=== PATIENT | male | born 1995 | race Caucasian/White ===

== ENCOUNTER 2017-11-03 14:35 | Emergency (ER) | payer MEDICAID, OTHER ==
[~2017-11-03] VITALS: Ht 182.9 cm; Wt 95.3 kg
[~2017-11-03 14:35] MED LIST: BETA50CR5 TP; CYCL10TA9 PO; ELIMITE; METH4TAB PO; NAPR-689 PO; NAPR-915 PO; PRD20T PO
--- OUTSIDE RECORDS SUMMARY | 2017-11-03 14:41 | XMS REPORT ---
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 Active Assessment Bronchitis J40 Active Problem Contact dermatitis 692.9 Active Assessment Cellulitis L03.90 Active Medications Medication Code System Code Instructions Start Date End Date Status Dosage PredniSONE [facility] [address]-33 20 MG Orally Once a day Mar 03, 2015 2 qd 5 d, 1 qd until gone Doxycycline Hyclate [facility] [address]-55 100 MG Orally Twice a day Mar 31, 2015 Apr 07, 2015 1 capsule Procedures Procedure Coding System Code Date Office Visit, Est Pt., Level 3 CPT-4 10925 Mar 31, 2015 Vital Signs Date/Time: Mar 31, 2015 Temperature 99.3 F Weight 204 lbs Height 71.0 in BMI 28.45 Index Blood Pressure Diastolic 92 mmHg Blood Pressure Systolic 130 mmHg Cardiac Monitoring Heart Rate 84 bpm Results No Known Results Summary Purpose eClinicalWorks Submission
--- OUTSIDE RECORDS SUMMARY | 2017-11-03 14:41 | XMS REPORT ---
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 Active Assessment Rotator cuff injury, right, initial encounter S46.001A Active Problem Contact dermatitis 692.9 Active Medications Medication Code System Code Instructions Start Date End Date Status Dosage Cyclobenzaprine HCl [facility] [address]-03 10 mg Orally 2 times a day October 04, 2015 November 03, 2015 1 tablet EpiPen 2-Matthieu [facility] [address]-68 0.3 MG/0.3ML Injection as directed December 26, 2014 as directed Naproxen [facility] [address]-61 500 MG Orally every 12 hrs October 04, 2015 1 tablet as needed PredniSONE [facility] [address]-45 20 mg Orally Once a day October 04, 2015October 2 tablets Procedures Procedure Coding System Code Date Office Visit, Est Pt., Level 3 CPT-4 76436 October 04, 2015 Vital Signs Date/Time: October 04, 2015 Temperature 98.7 F Weight 204.5 lbs Height 71.0 in BMI 28.52 Index Blood Pressure Diastolic 80 mmHg Blood Pressure Systolic 124 mmHg Cardiac Monitoring Heart Rate 76 bpm Results No Known Results Summary Purpose eClinicalWorks Submission
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
--- OUTSIDE RECORDS SUMMARY | 2017-11-03 14:41 | XMS REPORT ---
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 810252387 Problem Tachycardia R00.0 Active 7391770 Problem Contact dermatitis, allergic L23.9 Active 376341023 ALLERGIES Substance Reaction Event Type Date Status Bee Pollen Unknown Drug Allergy Jun, Active Amoxicillin Unknown Drug Allergy Jun, Active SOCIAL HISTORY No smoking Hx information available PLAN OF CARE Activity Details Follow Up prn Reason:hygeine VITAL SIGNS Height 71.0 in 2016-06-10 Blood pressure systolic 129 mmHg 2016-06-10 Blood pressure diastolic 82 mmHg 2016-06-10 MEDICATIONS Medication Instructions Dosage Frequency Start Date End Date Duration Status EpiPen 2-Matthieu 0.3 MG/0.3ML Injection as directed as directed Dec, 1 dose Active RESULTS No Results PROCEDURES Procedure Date Ordered Related Diagnosis Body Site LTD ORAL EVALUATION - PROBLEM FOCUS Jun 10, 2016 PANORAMIC FILM SEE ALSO CODE 13840 Jun 10, 2016 IMMUNIZATIONS No Known Immunizations
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
--- OUTSIDE RECORDS SUMMARY | 2017-11-03 14:41 | XMS REPORT ---
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 Active 776450486 Problem Tachycardia R00.0 Active 4783539 Problem Contact dermatitis, allergic L23.9 Active 406943331 ALLERGIES Substance Reaction Event Type Date Status Bee Pollen Unknown Drug Allergy Jun, Active Amoxicillin Unknown Drug Allergy Jun, Active SOCIAL HISTORY No smoking Hx information available PLAN OF CARE VITAL SIGNS Height 71.0 in 2016-06-21 Weight 208.1 lbs 2016-06-21 Temperature 98.2 degrees Fahrenheit 2016-06-21 Heart Rate 73 bpm 2016-06-21 Respiratory Rate 18 2016-06-21 Oximetry 98 % 2016-06-21 BMI 29.02 kg/m2 2016-06-21 Blood pressure systolic 125 mmHg 2016-06-21 Blood pressure diastolic 75 mmHg 2016-06-21 MEDICATIONS Medication Instructions Dosage Frequency Start Date End Date Duration Status EpiPen 2-Matthieu 0.3 MG/0.3ML Injection as directed as directed Dec, 1 dose Active RESULTS No Results PROCEDURES Procedure Date Ordered Related Diagnosis Body Site HOLTER MONITOR (OUTPATIENT) 2016-06-21 NOT PERFORMED/SEE INTERNAL NOTES MEASURE BLOOD OXYGEN LEVEL Jun 21, 2016 Office Visit, Est Pt., Level 3 Jun 21, 2016 IMMUNIZATIONS No Known Immunizations
--- OUTSIDE RECORDS SUMMARY | 2017-11-03 14:42 | XMS REPORT ---
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 Active Assessment Otitis media, left H66.92 Active Problem Contact dermatitis 692.9 Active Medications Medication Code System Code Instructions Start Date End Date Status Dosage EpiPen 2-Matthieu [facility] [address]-80 0.3 MG/0.3ML Injection as directed December 26, 2014 as directed Doxycycline Hyclate [facility] [address]-63 100 MG Orally every 12 hrs May 31, 2015 Jun 07, 2015 1 capsule Claritin [facility] [address]-94 10 MG Orally Once a day Apr 24, 2015 1 tablet Flonase [facility] [address]-24 50 MCG/ACT Nasally Once a day Apr 24, 2015 1 spray in each nostril Procedures Procedure Coding System Code Date Office Visit, Est Pt., Level 3 CPT-4 41566 May 31, 2015 Vital Signs Date/Time: May 31, 2015 Temperature 98.8 F Weight 204.3 lbs Height 71.0 in BMI 28.49 Index Blood Pressure Diastolic 78 mmHg Blood Pressure Systolic 112 mmHg Cardiac Monitoring Heart Rate 80 bpm Results No Known Results Summary Purpose eClinicalWorks Submission
--- OUTSIDE RECORDS SUMMARY | 2017-11-03 14:42 | XMS REPORT ---
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 Active Assessment Allergic rhinitis J30.9 Active Problem Contact dermatitis 692.9 Active Medications Medication Code System Code Instructions Start Date End Date Status Dosage Claritin [facility] [address]-12 10 MG Orally Once a day Apr 24, 2015 1 tablet EpiPen 2-Matthieu [facility] [address]-19 0.3 MG/0.3ML Injection as directed December 26, 2014 as directed Flonase [facility] [address]-22 50 MCG/ACT Nasally Once a day Apr 24, 2015 1 spray in each nostril Procedures Procedure Coding System Code Date DEPO MEDROL 40 MG/ML CPT-4 J1030 Apr 24, 2015 THER/PROPH/DIAG INJ, SC/IM CPT-4 68261 Apr 24, 2015 Office Visit, Est Pt., Level 3 CPT-4 74069 Apr 24, 2015 DEXAMETHASONE 4MG/ML (PER 1 MG) CPT-4 J1100 Apr 24, 2015 Vital Signs Date/Time: Apr 24, 2015 Temperature 99.4 F Weight 202.5 lbs Height 71.0 in BMI 28.24 Index Blood Pressure Diastolic 82 mmHg Blood Pressure Systolic 124 mmHg Cardiac Monitoring Heart Rate 82 bpm Results No Known Results Summary Purpose eClinicalWorks Submission
--- OUTSIDE RECORDS SUMMARY | 2017-11-03 14:42 | XMS REPORT ---
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 Active Assessment Contact dermatitis 692.9 Active Problem Contact dermatitis 692.9 Active Medications Medication Code System Code Instructions Start Date End Date Status Dosage EpiPen 2-Matthieu [facility] [address]-32 0.3 MG/0.3ML Injection as directed December 26, 2014 as directed PredniSONE [facility] [address]-97 20 MG Orally Once a day Feb 11, 2015Feb 2 tabs daily x 2 days, 1 tab daily x 2 days, 1/2 tab daily x 2 days Procedures Procedure Coding System Code Date Office Visit, Est Pt., Level 3 CPT-4 18526 Feb 11, 2015 Vital Signs Date/Time: Feb 11, 2015 Temperature 98.9 F Weight 194 lbs Height 71.0 in BMI 27.05 Index Blood Pressure Diastolic 75 mmHg Blood Pressure Systolic 130 mmHg Results No Known Results Summary Purpose eClinicalWorks Submission
--- NOTE | 2017-11-03 15:11 | ED Integumentary General ---
General Chief Complaint: Skin/Wound Problems Stated Complaint: R LEG ITCHY RASH Source: patient, family Exam Limitations: no limitations History of Present Illness Date Seen by Provider: November 03, 2017 Time Seen by Provider: 14:57 Initial Comments The patient presents to ER by private conveyance with a chief complaint that he is having a red itchy rash on the back of his right leg. He was out at the [employer] when he noticed this started up. He has not taken anything for nor put anything on it. He says in the past when he got poison otilia he went to the doctor 's office or the ER and was given a shot and he would like that again. He is not having any shortness of breath, difficulty swallowing, fevers chills nausea vomiting or diarrhea. Allergies and Home Medications Allergies Coded Allergies: amoxicillin (Verified Allergy, Unknown, 10/31/15) Home Medications Cyclobenzaprine HCl 10 Mg Tablet, 10 MG PO HS, (Reported) Naproxen 500 Mg Tablet, 500 MG PO Q12H PRN for PAIN, (Reported) Patient Home Medication List Home Medication List Reviewed: Yes Constitutional: see HPI EENTM: see HPI Respiratory: see HPI Cardiovascular: No chest pain, No edema Gastrointestinal: No abdominal pain, No constipation, No diarrhea Genitourinary: No discharge, No dysuria Musculoskeletal: No back pain, No joint pain Skin: pruritus, rash Past Hwzfucf-Npgiwa-Ohsxxi Hx Patient Social History Alcohol Use: Denies Use Recreational Drug Use: No Smoking Status: Never a Smoker Recent Hopitalizations: No Physical Abuse: No Sexual Abuse: No Immunizations Up To Date Tetanus Booster (TDap): More than 5yrs Past Medical History Surgeries: Yes (L KNEE) Orthopedic Respiratory: No Currently Using CPAP: No Currently Using BIPAP: No Cardiac: No Neurological: No Reproductive Disorders: No Gastrointestinal: No Musculoskeletal: No Endocrine: No Cancer: No Psychosocial: No Nursing Suicide Risk Score: 0 Integumentary: Yes (ALLERGY TO POISON OTILIA) Blood Disorders: No Family Medical History No Pertinent Family Hx Physical Exam Vital Signs Capillary Refill : General Appearance: WD/WN, no apparent distress HEENT: PERRL/EOMI, pharynx normal Neck: non-tender, supple, normal inspection Cardiovascular: normal peripheral pulses, regular rate, rhythm, no edema Respiratory: no respiratory distress, no accessory muscle use Neurologic/Psychiatric: alert, oriented x 3 Skin: rash (erythematous rash with papules consistent with contact dermatitis. Her reticulocyte.) Skin Problem Location: lower extremities (posterior right leg popliteal fossa down to mid calf) Progress/Results/Core Measures Results/Orders My Orders Orders - ANITHA NIETO Methylprednisolone Acetate Inj (Depo-Med (11/03/17 15:15) Progress Progress Note : Time: 15:08 Progress Note Depo-Medrol 80 mg IM Departure Impression Primary Impression: Contact dermatitis due to poison otilia Disposition: HOME, SELF-CARE Condition: Stable Departure-Patient Inst. Decision time for Depature: 15:09 Referrals: [facility] (PCP) Primary Care Physician DAISY GREEN APRN (Family) Primary Care Physician Patient Instructions: Contact Dermatitis (DC) Add. Discharge Instructions: Keep the skin clean with soap and water. Apply some Calmoseptine or similar drying agent as needed. Use 10 mg of Zyrtec or Claritin daily for the itching with 25 mg Benadryl every 6 hours as needed for breakthrough itching. All discharge instructions reviewed with patient and/or family. Voiced understanding. Scripts No Active Prescriptions or Reported Meds Copy Copies To 1: ROYAL PANDA TITUS J November 03, 2017 15:11
[2017-11-03] MEDS ORDERED: methylPREDNISolone 80 MG/ML (DEPO MEDROL) VIAL IM ONE (15:15)
[2017-11-03 15:22] VITALS: BP 123/67
== END 2017-11-03 15:21 | disposition home or self-care (01) ==
LOC: EDUNIT# 14:35 → ER 14:36
DX: L23.7 Allergic contact dermatitis due to plants, except food (principal); Z88.0 Allergy status to penicillin
CPT/HCPCS: 96372; 99284

== ENCOUNTER 2018-09-13 02:26 | Emergency (ER) | payer OTHER ==
[~2018-09-13] VITALS: Ht 182.9 cm; Wt 99.8 kg
[2018-09-13] MEDS ORDERED: RX-MUPIROCIN (BACTROBAN) 2% OINT 22 GM TUBE TOP STA (04:15)
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
[2018-09-13] MEDS ORDERED: MUPI1OIN6 TP (04:50)
[2018-09-13] MEDS ORDERED: TRAM-42 PO (04:50)
[2018-09-13] MEDS ORDERED: SULF1TAB35 PO (04:50)
[2018-09-13 05:00] VITALS: BP 125/99
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
== END 2018-09-13 04:59 | disposition home or self-care (01) ==
LOC: EDUNIT# 02:26 → ER 02:29
DX: S62.347A Nondisplaced fracture of base of fifth metacarpal bone, left hand, initial encounter for closed fracture (principal); S06.0X1A Concussion with loss of consciousness of 30 minutes or less, initial encounter; S80.01XA Contusion of right knee, initial encounter; S00.432A Contusion of left ear, initial encounter; S40.022A Contusion of left upper arm, initial encounter; S50.12XA Contusion of left forearm, initial encounter; F10.10 Alcohol abuse, uncomplicated; Z88.0 Allergy status to penicillin; Y04.0XXA Assault by unarmed brawl or fight, initial encounter
CPT/HCPCS: 70450; 70486; 72125; 73030; 73060; 73090; 73130; 73562